=== PATIENT | male | born 1955 | race Caucasian/White ===

== ENCOUNTER 2018-09-24 06:54 | Emergency (ER) | payer BC ==
[~2018-09-24] VITALS: Ht 180.3 cm; Wt 88.5 kg
[2018-09-24 07:02] VITALS: BP_SYST 119
--- NOTE | 2018-09-24 07:07 | NUR ---
Patient to ER bed 6 to gown for evaluation. Side rails up. Report given to Jane NGUYEN.
--- NOTE | 2018-09-24 07:08 | NUR ---
Patient presented to ER with Right ankle pain, mechanical fall this morning. Moderate swelling to right ankle and deformity to medial right ankle. Patient A&Ox4, skin pink, pain 3/10, cap refill brisk, pulses present, denies N/V/D. Patient states he had trip and fall this morning at home.
--- NOTE | 2018-09-24 07:25 | NUR ---
Radiology at bedside for portable x-ray.
--- NOTE | 2018-09-24 07:35 | NUR ---
ER Dr. Delcid at bedside examining patient.
[2018-09-24] MEDS ORDERED: BACITRACIN 1 GM OINT TP ONE ×2 (07:45→07:55)
--- NOTE | 2018-09-24 07:45 | NUR ---
Posterior splint and Sugar tong splint applied to right ankle. Pedal and posterior tibial pulse noted. Capillary refill <3 seconds. Patient has ability to move non-splinted digits. Has sensation present to affected site. Skin color within normal limits. Applied for pain management control.
--- NOTE | 2018-09-24 08:15 | NUR ---
Crutches properly fitted for patient by Rickey NGUYEN. Patient given crutch walking instructions and demonstration. Is able to demonstrate adequate crutch walking technique with crutches provided.
[2018-09-24 08:20] VITALS: BP_SYST 119
--- NOTE | 2018-09-24 08:20 | NUR ---
Patient given written and verbal discharge instructions and verbalizes understanding. ER MD discussed with patient the results and treatment provided. Patient in stable condition. ID arm band removed. Rx of Jerome & motrin given. Patient educated on pain management and to follow up with PMD. Pain Scale 3/10 tolerable for patient. Opportunity for questions provided and answered. Medication side effect fact sheet provided.
== END 2018-09-24 08:20 | disposition home or self-care (01) ==
LOC: SED 06:54
DX: S82.51XA Displaced fracture of medial malleolus of right tibia, initial encounter for closed fracture (principal); W19.XXXA Unspecified fall, initial encounter; Y93.89 Activity, other specified; Y92.89 Other specified places as the place of occurrence of the external cause; Y99.8 Other external cause status
CPT/HCPCS: 99283